=== PATIENT | female | born 1940 | race Caucasian/White ===

== ENCOUNTER → 2016-10-11 | Outpatient (CLI) | payer MEDICARE, BC | LOC: LAB.NP 14:07 | PROVIDERS: ATTEND Nurse Practitioner Family | DX: N39.0 Urinary tract infection, site not specified (principal) ==

== ENCOUNTER → 2016-10-16 | Outpatient (CLI) | payer MEDICARE, BC ==
--- NOTE | 2016-10-16 15:28 | MAM ---
EXAM DESCRIPTION: MAMMO BREAST SCREENING BILATERAL CAD, images were reviewed with CAD technology, R2 computer-aided detection. CLINICAL HISTORY: [facility]. COMPARISON: 2011. FINDINGS: Routine views are obtained. Nodular parenchymal contour with the increased mammographic density and stable distribution. No dominant mass, architectural distortion or clustered microcalcification.. IMPRESSION: Benign exam BIRAD CATEGORY: 2 BENIGN RECOMMENDATIONS: FOLLOW-UP: Routine screening mammogram in one year. According to the [employer], yearly mammograms are recommended starting at age 40 and continuing as long as a woman is in good health. Any breast change noted on a breast self-exam should be reported promptly to the patient's healthcare provider. Breast MRI is recommended for women with an approximately 20-25% or greater lifetime risk of breast cancer, including women with a strong family history of breast or ovarian cancer and women who have been treated for Hodgkin's disease. Electronically signed by: Josey Salas 10/16/2016 15:26
== END ==
LOC: MAMMO 12:29
PROVIDERS: ATTEND Family Medicine
DX: Z12.31 Encounter for screening mammogram for malignant neoplasm of breast (principal)
CPT/HCPCS: 77067; G0202

== ENCOUNTER → 2016-11-12 | Outpatient (CLI) | payer MEDICARE, BC | END | disposition home or self-care (01) | LOC: GMA 11:34 | PROVIDERS: ATTEND Nurse Practitioner Family | DX: R53.82 Chronic fatigue, unspecified (principal) ==

== ENCOUNTER 2017-03-13 09:42 | Emergency (ER) | payer MEDICARE, BC ==
[2017-03-13 10:17] VITALS: TEMP 97.2; O2SAT 98
[2017-03-13] MEDS ORDERED: COLCHICINE 0.6 MG TAB PO ONE (10:39)
--- NOTE | 2017-03-13 10:47 | RAD ---
EXAM DESCRIPTION: Wrist,Left 2 Views CLINICAL HISTORY: wrist and hand pain 3d no trauma COMPARISON: None. TECHNIQUE: 2 views left FINDINGS: Calcification of the triangle fibrocartilage is observed. Mild degenerative changes are observed in the metacarpal carpal articulation of the first digit. Mild osteopenia is noted. No fracturing is detected. IMPRESSION: Degenerative changes are observed. No fracturing is detected. Electronically signed by: Kannan Reyes MD 03/13/2017 10:39 AM CDT
--- NOTE | 2017-03-13 10:47 | RAD ---
EXAM DESCRIPTION: Hand,Left 2 Views CLINICAL HISTORY: wrist and hand pain 3d no trauma COMPARISON: None. TECHNIQUE: 2 views left FINDINGS: Calcification of the triangle fibrocartilage is observed. Mild osteopenia is noted. Mild degenerative changes are observed in the metacarpal carpal articulation of the first digit. Mild distal interphalangeal joint arthritis is noted. No fracturing is detected. IMPRESSION: Degenerative changes are observed. No fracturing is detected. Electronically signed by: Kannan Reyes MD 03/13/2017 10:38 AM CDT
--- NOTE | 2017-03-13 12:29 | ED.PDOC ---
History of Present Illness - General Chief Complaint: General Stated Complaint: left wrist pain Time Seen by Provider: 03/13/17 09:56 Source: patient - History of Present Illness Initial Comments: the patient is a 76-year-old female presenting to the emergency room with left wrist pain. She has had the pain at least a couple of months but it has been progressively getting worsewith significant increase in swelling over the last 3 days. She does not remember having any trauma and it recently. She does have known arthritis in the joint. She is neurovascularly intact. No history of gout. No fevers. No erythema of the skin. There is discomfort with palpation of the swelling. There is discomfort with movement of the wrist joint. No crepitus. Minimal pain in the hand. No other evidence of any injury. She had a uric acid level done not too long ago that was only 3.5. Timing/Duration: constant, getting worse Severity: moderate Improving Factors: immobilization Worsening Factors: movement Associated Symptoms: denies symptoms Allergies/Adverse Reactions: Allergies Codeine Allergy (Verified 03/13/17 10:18) Home Medications: Ambulatory Orders NK [NK] 03/13/17 Review of Systems - Review of Systems Constitutional: States: no symptoms reported EENTM: States: no symptoms reported Respiratory: States: no symptoms reported Cardiology: States: no symptoms reported Gastrointestinal/Abdominal: States: no symptoms reported Genitourinary: States: no symptoms reported Musculoskeletal: States: see HPI Skin: States: no symptoms reported Neurological: States: no symptoms reported Endocrine: States: no symptoms reported All other Systems: No Change from Baseline Past Medical History (General) - Patient Medical History Hx Seizures: No Hx Stroke: No Hx Dementia: No Hx Asthma: No Hx of COPD: No Hx Cardiac Disorders: No Hx Congestive Heart Failure: No Hx Pacemaker: No Hx Hypertension: No Hx Thyroid Disease: No Hx Diabetes: No Hx Gastroesophageal Reflux: Yes Hx Renal Disease: No Hx Cancer: No Hx of HIV: No Hx Hepatitis C: No Hx MRSA: No Surgical History: Hysterectomy, other - Vaccination History Hx Tetanus, Diphtheria Vaccination: Yes Hx Influenza Vaccination: Yes Hx Pneumococcal Vaccination: Yes - Social History Hx Tobacco Use: No Hx Chewing Tobacco Use: No Hx Alcohol Use: Yes - social Hx Substance Use: No Hx Substance Use Treatment: No Hx Depression: No Hx Physical Abuse: No Hx Emotional Abuse: No Hx Suspected Abuse: No - Activities of Daily Living Hospice Agency (if applicable):: None - Female History Patient is a Female of Child Bearing Age (10 -59 yrs old): No Patient : No Family Medical History - Family History Mother Family History: Unknown Physical Exam - Physical Exam General Appearance: Alert, Comfortable, No apparent distress Eye Exam: bilateral normal Ears, Nose, Throat: hearing grossly normal, normal pharynx Neck: full range of motion Respiratory: no respiratory distress, no accessory muscle use Cardiovascular/Chest: normal peripheral pulses, regular rate, rhythm, no edema Peripheral Pulses: radial,right: 2+, radial,left: 2+, dorsalis pedis,right: 2+, dorsalis pedis,left: 2+ Extremity: no pedal edema, no calf tenderness, normal capillary refill, swelling - left wrist See history of present illness. Neurologic: alert, normal mood/affect, oriented x 3 Skin Exam: normal color Comments: Vital Signs - 24 hr 03/13/17 09:50 Temperature 97.2 F L Respiratory 18 Rate Blood Pressure 139/63 [Right Arm] O2 Sat by Pulse 98 Oximetry Progress - Progress Progress: 03/13/17 12:29 the patient is a 76-year-old female presenting to the emergency room secondary to pain in the left wrist for an extended period of time that has progressed recently. the x-ray shows no evidence of anyfracture or dislocation. There is significant evidence of arthritis. The patient is to take one Aleve twice daily with food for the next week. She is placed in a wrist splint to help reduce movement. She was given a trial dose of colchicine without significant improvement. ER warnings were given for any worsening. She should follow-up with her primary care doctor within 1 week. 03/13/17 12:57 Departure - Departure Clinical Impression: Arthritis of wrist, degenerative Qualifiers: Osteoarthritis type: unspecified Laterality: left Qualified Code(s): M19.032 - Primary osteoarthritis, left wrist Disposition: Discharge to Home or Self Care Condition: Fair Departure Forms: ED Discharge - Pt. Copy, Patient Portal Self Enrollment Instructions: Osteoarthritis Diet: regular diet Activity: increase activity as tolerated Referrals: Tony Mcdowell MD [Primary Care Provider] - 1-2 Weeks Home Medications: Ambulatory Orders NK [NK] 03/13/17 Additional Instructions: the patient is a 76-year-old female presenting to the emergency room secondary to pain in the left wrist for an extended period of time that has progressed recently. the x-ray shows no evidence of anyfracture or dislocation. There is significant evidence of arthritis. The patient is to take one Aleve twice daily with food for the next week. She is placed in a wrist splint to help reduce movement. She was given a trial dose of colchicine without significant improvement. ER warnings were given for any worsening. She should follow-up with her primary care doctor within 1 week.
[2017-03-13 13:28] VITALS: BP 136/75
== END 2017-03-13 13:05 | disposition home or self-care (01) ==
LOC: ER 09:42
DX: M19.032 Primary osteoarthritis, left wrist (principal); Z88.5 Allergy status to narcotic agent; K21.9 Gastro-esophageal reflux disease without esophagitis

== ENCOUNTER → 2018-02-03 | Outpatient (CLI) | payer MEDICARE, BC ==
--- NOTE | 2018-02-05 13:37 | MAM ---
EXAM DESCRIPTION: 3D Screening BILATERAL : Digital Mammography. CLINICAL HISTORY: 77 years Female SCREENING . No complaints. Sister and remote family history of breast cancer. Childbirth. Hysterectomy. HRT 5 or more years ago. Prior biopsy left breast. COMPARISON: 2-D digital screening bilateral study 10/06/2016.. Report from prior examination also reviewed. TECHNIQUE: Bilateral CC and MLO projection full-field images, 3-D tomosynthesis digital mammographic technique. CAD not utilized. FINDINGS: The breast parenchymal density pattern is: Heterogeneously dense breast tissue, which may obscure small masses. No skin thickening or nipple retraction bilateral vascular calcifications. Bilateral solitary calcifications. Left axillary lymph nodes. No focal, stellate mass or density, focal asymmetry , and no suspicious microcalcifications bilaterally. Stable mammograms compared to prior study, taking into account differences in mammographic technique IMPRESSION: BI-RADS CATEGORY: 2 - BENIGN FINDINGS. FOLLOW UP: Routine digital bilateral screening, one year interval from January 2018. Written communication explaining the IMPRESSION and follow-up, will be mailed to the patient and referring health care provider. According to the [employer], yearly mammograms are recommended starting at age 40 and continuing as long as a woman is in good health. Any breast change noted on a breast self-exam should be reported promptly to the patient's healthcare provider. Breast MRI is recommended for women with an approximately 20-25% or greater lifetime risk of breast cancer, including women with a strong family history of breast or ovarian cancer and women who have been treated for Hodgkin's disease. A negative mammographic report should not delay tissue diagnosis in patients with significant clinical history or physical findings. Extremely dense breast tissue limits the sensitivity of digital mammography. Electronically signed by: Sacha Evans MD 02/05/2018 1:36 PM CDT
== END ==
LOC: MAMMO 13:13
PROVIDERS: ATTEND Family Medicine
DX: Z12.31 Encounter for screening mammogram for malignant neoplasm of breast (principal)

== ENCOUNTER → 2018-07-17 | Outpatient (CLI) | payer MEDICARE, BC ==
--- NOTE | 2018-07-17 10:37 | RAD ---
EXAM DESCRIPTION: Pelvis CLINICAL HISTORY: 78 years Female, HIP PAIN COMPARISON: January 21, 2013 FINDINGS: Single AP view of the pelvis shows no pelvic fracture or malalignment. Moderate degenerative changes in the right hip are worse from the prior exam including joint space narrowing and osteophyte formation. The left hip joint is relatively well maintained. Mild degenerative changes are noted in the pubic symphysis and also in the lower lumbar spine at several levels. Postoperative changes in the pelvis are unchanged from the previous. IMPRESSION: Moderate degenerative changes in the right hip, worse from November,. Electronically signed by: Seth Rae MD 07/17/2018 10:35 AM CDT
--- NOTE | 2018-07-17 10:38 | RAD ---
EXAM DESCRIPTION: Hip,Left 2 Views CLINICAL HISTORY: 78 years Female, HIP PAIN COMPARISON: None. FINDINGS: Two views of the left hip show no acute fracture or malalignment. No significant left hip joint space narrowing. No focal bone lesion. Postoperative changes are noted in the pelvis, but the soft tissues are otherwise unremarkable. IMPRESSION: Negative exam. No apparent abnormality to explain left hip pain. Electronically signed by: Seth Rae MD 07/17/2018 10:36 AM CDT
== END ==
LOC: RAD 08:13
PROVIDERS: ATTEND Orthopaedic Surgery
DX: M25.552 Pain in left hip (principal)

== ENCOUNTER → 2019-02-05 | Outpatient (CLI) | payer MEDICARE ==
--- NOTE | 2019-02-06 15:07 | MAM ---
EXAM DESCRIPTION: 3D Screening BILATERAL : Digital Mammography. CLINICAL HISTORY: 78 years Female ANNUAL SCREENING no complaints. No personal or family history of breast cancer. Childbirth. Postmenopausal. Taking HRT 5 or more years ago. Prior right breast benign biopsy. Lifetime risk of developing breast cancer (Tyrer-Cuzick model)(%): 3.2. COMPARISON: Bilateral screening digital breast tomosynthesis 02/03/2018.. TECHNIQUE: Bilateral CC and MLO projection full-field images, digital tomosynthesis mammographic technique. Bilateral digital 2-D full-field MLO images. CAD not available for tomosynthesis or 2-D images. FINDINGS: The breast parenchymal density pattern is: Heterogeneously dense breast tissue, which may obscure small masses. No skin thickening or nipple retraction. No new focal, stellate mass or density, focal asymmetry , and no suspicious microcalcifications bilaterally. Stable mammograms compared to prior study. IMPRESSION: Negative findings. ASSESSMENT: BI-RADS CATEGORY: 1 - NEGATIVE FOLLOW UP: Routine digital bilateral screening, one year interval from January 2019. Written communication explaining the findings and follow-up, will be mailed to the patient and referring health care provider. According to the [employer], yearly mammograms are recommended starting at age 40 and continuing as long as a woman is in good health. Any breast change noted on a breast self-exam should be reported promptly to the patient's healthcare provider. Breast MRI is recommended for women with an approximately 20-25% or greater lifetime risk of breast cancer, including women with a strong family history of breast or ovarian cancer and women who have been treated for Hodgkin's disease. A negative mammographic report should not delay tissue diagnosis in patients with significant clinical history or physical findings. Extremely dense breast tissue limits the sensitivity of digital mammography. Electronically signed by: Sacha Evans MD 02/06/2019 3:05 PM CDT
== END ==
LOC: MAMMO 08:18
PROVIDERS: ATTEND Family Medicine
DX: Z12.31 Encounter for screening mammogram for malignant neoplasm of breast (principal); M25.50 Pain in unspecified joint; Z79.899 Other long term (current) drug therapy

== ENCOUNTER → 2019-04-30 | Outpatient (CLI) | payer MEDICARE ==
--- NOTE | 2019-04-30 09:07 | RAD ---
PROVIDED CLINICAL HISTORY/REASON FOR EXAM: M25.552 Findings: Number of images: 3 Location: Right hip/pelvis No acute fracture or dislocation. Moderate right hip joint space narrowing with subchondral sclerosis and cyst formation. Right hip osteophytosis. Soft tissues are unremarkable. Surgical material noted overlying the central pelvis. Mild left hip osteoarthritis. Bilateral sacroiliac joint space narrowing. Partially visualized lower lumbar spondylosis. IMPRESSION: Chronic degenerative changes about the right hip and pelvis. No evidence of acute process. Electronically signed by: Johnson Yoder MD 04/30/2019 9:05 AM CDT
== END ==
LOC: RAD 07:56
PROVIDERS: ATTEND Orthopaedic Surgery
DX: M16.11 Unilateral primary osteoarthritis, right hip (principal)

== ENCOUNTER → 2020-02-26 | Outpatient (CLI) | payer MEDICARE ==
--- NOTE | 2020-02-26 09:23 | RAD ---
EXAM DESCRIPTION: Ankle,Right 3 Views CLINICAL HISTORY: 79 years Female, PAIN IN RIGHT ANKLE AND JOINTS OF RIGHT FOOT COMPARISON: None. FINDINGS: Three views of the right ankle were obtained. No soft tissue swelling, acute fracture or dislocation is identified. Narrowing of the tibiotalar joint space, worse medially. The talar dome is intact. Degenerative calcification arising from the tips of the medial and lateral malleolar line. Less likely, this could be related to remote trauma. The subtalar joint and calcaneus are unremarkable. IMPRESSION: Moderately advanced degenerative changes in the tibiotalar joint. Electronically signed by: Seth Rae MD 02/26/2020 9:22 AM CDT
== END ==
LOC: RAD 08:18
PROVIDERS: ATTEND Orthopaedic Surgery
DX: M19.071 Primary osteoarthritis, right ankle and foot (principal)

== ENCOUNTER → 2020-06-14 | Outpatient (CLI) | payer MEDICARE ==
--- NOTE | 2020-06-15 16:12 | MAM ---
EXAM DESCRIPTION: 3D Screening BILATERAL : Digital Mammography. CLINICAL HISTORY: 80 years Female ANNUAL SCREENING . No complaints. Sister with breast cancer at age 40. Menarche age 16. Childbirth age 20. Menopause age 34. Lifetime risk of developing breast cancer (Tyrer-Cuzick model)(%): 4.4. COMPARISON: Bilateral screening digital breast tomosynthesis 2018 and January 2018. TECHNIQUE: Bilateral CC and MLO projection full-field images, digital tomosynthesis mammographic technique. Bilateral digital 2-D full-field MLO images. CAD available for 2-D images. FINDINGS: The breast parenchymal density pattern is: Heterogeneously dense breast tissue, which may obscure small masses. No skin thickening or nipple retraction. Solitary microcalcifications. Axillary lymph nodes.*Or calcifications. No new focal, stellate mass or density, focal asymmetry , and no suspicious microcalcifications bilaterally. Stable mammograms compared to prior study. IMPRESSION: Benign exam. BIRAD CATEGORY: 2 BENIGN FINDINGS. RECOMMENDATIONS: FOLLOW UP: Routine digital bilateral mammographic screening, one year interval from May 2020. Written communication explaining the IMPRESSION and follow-up, will be mailed to the patient and referring health care provider. According to the [employer], yearly mammograms are recommended starting at age 40 and continuing as long as a woman is in good health. Any breast change noted on a breast self-exam should be reported promptly to the patient's healthcare provider. Breast MRI is recommended for women with an approximately 20-25% or greater lifetime risk of breast cancer, including women with a strong family history of breast or ovarian cancer and women who have been treated for Hodgkin's disease. A negative mammographic report should not delay tissue diagnosis in patients with significant clinical history or physical findings. Extremely dense breast tissue limits the sensitivity of digital mammography. Electronically signed by: Sacha Evans MD 06/15/2020 4:11 PM CDT
== END ==
LOC: MAMMO 08:48
PROVIDERS: ATTEND Family Medicine
DX: Z12.31 Encounter for screening mammogram for malignant neoplasm of breast (principal)

== ENCOUNTER 2020-08-07 06:10 | Emergency (ER) | payer MEDICARE ==
--- NOTE | 2020-08-07 06:26 | ED.PDOC ---
History of Present Illness - General Chief Complaint: Upper Extremity Injury Stated Complaint: Left wrist pain Time Seen by Provider: 08/07/20 06:22 Source: patient, RN notes reviewed, Vital Signs reviewed, family - History of Present Illness Initial Comments: This is a 80-year-old female presenting to the emergency department after a mechanical fall that occurred approximately 45 minutes prior to arrival. Patient states she walked into a dark bathroom and missed the toilet while sitting down. She states she fell into her bathtub onto an outstretched left wrist. She denies any preceding symptoms, no chest pain no shortness of breath, no dizziness. She denies any head trauma. She denies any neck or back pain. She is able to ambulate after the fall. She is left-hand dominant Allergies/Adverse Reactions: Allergies Codeine Allergy (Verified 03/13/17 10:18) Home Medications: Ambulatory Orders Tramadol HCl 50 - 100 mg PO Q6H PRN #20 tab 08/07/20 Review of Systems - Review of Systems Respiratory: Denies: short of breath Cardiology: Denies: chest pain, palpitations Musculoskeletal: States: joint pain. Denies: back pain, neck pain Neurological: Denies: headache, numbness, tingling Past Medical History (General) - Patient Medical History Hx Seizures: No Hx Stroke: No Hx Dementia: No Hx Asthma: No Hx of COPD: No Hx Cardiac Disorders: No Hx Congestive Heart Failure: No Hx Pacemaker: No Hx Hypertension: No Hx Thyroid Disease: No Hx Diabetes: No Hx Gastroesophageal Reflux: Yes Hx Renal Disease: No Hx Cancer: No Hx of HIV: No Hx Hepatitis C: No Hx MRSA: No - Vaccination History Hx Tetanus, Diphtheria Vaccination: Yes Hx Influenza Vaccination: Yes Hx Pneumococcal Vaccination: Yes - Social History Hx Tobacco Use: No Hx Chewing Tobacco Use: No Hx Alcohol Use: Yes - social Hx Substance Use: No Hx Substance Use Treatment: No Hx Depression: No Hx Physical Abuse: No Hx Emotional Abuse: No Hx Suspected Abuse: No - Female History Patient : No Family Medical History - Family History Mother Family History: Unknown Living Status: Hx Family Stroke: Yes Physical Exam - Physical Exam General Appearance: Alert, Comfortable Eyes, Ears, Nose, Throat Exam: normal ENT inspection Neck: non-tender, supple Cardiovascular/Respiratory: regular rate, rhythm, no M/R/G, normal peripheral pulses, no JVD Abdominal Exam: non-tender Back Exam: normal inspection, no CVA tenderness, no vertebral tenderness Shoulder Exam: normal inspection, non-tender, no evidence of injury Elbow/Forearm Exam: normal inspection, non-tender, no evidence of injury Wrist Exam: bone tenderness - Distal radius, proximal wrist, limited ROM, swelling Hand Exam: normal inspection, non-tender - No snuffbox tenderness Neuro/Tendon: normal sensation, normal motor functions, normal tendon functions Mental Status: alert, oriented x 3 Skin Exam: normal color, warm/dry Progress - Progress Progress: 08/07/20 06:44 Rechecked. Discussed x-ray findings, need for follow-up with orthopedics. Strict warnings given to return to emergency room for worsening pain, numbness, tingling, color changes, or any other concerns. Patient has seen Dr. Ramesh before in the past, she will call later on today for an appointment. DDX: Fx, sprain, dislocation MDM: Ground-level fall onto outstretched left wrist, patient with Colles' fracture, closed, neurovascularly intact. Splint placed, recommend follow-up with Ortho. Patient is only able to take tramadol for pain. Will give prescription for home. Splint precautions discussed. Jose Larson DO [facility] #[id number] - Results/Orders Results/Orders: Left wrist x-ray reviewed personally by me at 6:42 AM. There is a comminuted distal radius fracture, minimally angulated, as well as a ulnar styloid fracture. Departure - Departure Clinical Impression: Fall at home Qualifiers: Encounter type: initial encounter Qualified Code(s): W19.XXXA - Unspecified fall, initial encounter Colles' fracture Qualifiers: Encounter type: initial encounter Fracture type: closed Laterality: left Qualified Code(s): S52.532A - Colles' fracture of left radius, initial encounter for closed fracture Disposition: Discharge to Home or Self Care Condition: Good Departure Forms: ED Discharge - Pt. Copy, Patient Portal Self Enrollment Instructions: DI for Arm Pain, Colles' Fracture (DC), Splint Care Diet: resume usual diet Activity: increase activity as tolerated, no pushing/pulling with affected limb Referrals: Tony Mcdowell MD [Primary Care Provider] - 1-5 Days Zhao Ramesh MD [Active Staff] - 1-2 Days Prescriptions: Tramadol HCl 50 - 100 mg PO Q6H PRN #20 tab PRN Reason: Moderate To Severe Pain Home Medications: Ambulatory Orders Tramadol HCl 50 - 100 mg PO Q6H PRN #20 tab 08/07/20
--- NOTE | 2020-08-07 06:48 | RAD ---
EXAM: XR Left Wrist Complete, 3 or More Views CLINICAL HISTORY: The patient is 80 years old and is Female; fall, wrist pain TECHNIQUE: Three views of the left wrist. COMPARISON: No relevant prior studies available. FINDINGS: Bones/joints: Comminuted displaced distal radius fracture. Acute ulnar styloid fracture. No dislocation. Degenerative changes in the basal joint. Soft tissues: Soft tissue swelling. No radiopaque foreign body. IMPRESSION: 1. Comminuted displaced distal radius fracture. 2. Acute ulnar styloid fracture. Electronically signed by: Ayanna Linares MD 08/07/2020 6:47 AM [facility]
[2020-08-07 07:03] VITALS: BP 122/55; TEMP 97.7; O2SAT 99
== END 2020-08-07 07:03 | disposition home or self-care (01) ==
LOC: ER 06:10
DX: S52.532A Colles' fracture of left radius, initial encounter for closed fracture (principal); S52.612A Displaced fracture of left ulna styloid process, initial encounter for closed fracture; K21.9 Gastro-esophageal reflux disease without esophagitis; Z88.5 Allergy status to narcotic agent; W18.39XA Other fall on same level, initial encounter; Y92.002 Bathroom of unspecified non-institutional (private) residence as the place of occurrence of the external cause

== ENCOUNTER → 2020-08-19 | Outpatient (CLI) | payer MEDICARE ==
--- NOTE | 2020-08-20 11:21 | RAD ---
EXAM DESCRIPTION: Wrist,Left 3 Views: CR/DR/XR CLINICAL HISTORY: 80 years Female nondisplaced fracture of left radial styloid process COMPARISON: Left wrist radiographs August 07. TECHNIQUE: 3 VIEWS AP. Lateral. Oblique. Left wrist. FINDINGS: Transverse fracture distal left radius. Fracture line is less distinct. Displaced bone again noted on the ulnar aspect with irregularity of the cortex on the radial aspect. No change in radiodense objects on the volar aspect of the proximal radius on the lateral view. Minimally displaced fracture of the ulnar styloid stable. IMPRESSION: Healing fracture of the distal left radius. Stable alignment at the fracture site. Electronically signed by: Sacha Evans MD 08/20/2020 11:19 AM [facility]
== END ==
LOC: RAD 08:23
PROVIDERS: ATTEND Orthopaedic Surgery
DX: S52.592D Other fractures of lower end of left radius, subsequent encounter for closed fracture with routine healing (principal)

== ENCOUNTER → 2020-09-23 | Outpatient (CLI) | payer MEDICARE ==
--- NOTE | 2020-09-23 17:52 | RAD ---
EXAM DESCRIPTION: Wrist,Left 3 Views CLINICAL HISTORY: fracture of distal end of radius COMPARISON: 19 August 2020 TECHNIQUE: 3 views left FINDINGS: A prior fracture of the region of the radial metaphysis is observed. Some callus formation is observed at the fracture site. Angulation is unchanged from the previous exam. Degenerative changes are observed in the metacarpal carpal articulation of the first digit. Radial side intracarpal arthritis is observed. IMPRESSION: Healing fracture of the distal radius. No change in alignment is observed from the prior exam. Electronically signed by: Kannan Reyes MD 09/23/2020 5:51 PM [facility]
== END ==
LOC: RAD 08:43
PROVIDERS: ATTEND Orthopaedic Surgery
DX: S52.501D Unspecified fracture of the lower end of right radius, subsequent encounter for closed fracture with routine healing (principal)

== ENCOUNTER → 2020-10-14 | Outpatient (CLI) | payer MEDICARE ==
--- NOTE | 2020-10-15 13:52 | RAD ---
EXAM DESCRIPTION: Wrist,Left 3 Views CLINICAL HISTORY: 80 years, Female, CLOSED FX OF DISTAL RADIUS COMPARISON: None FINDINGS: Left wrist 3 x-ray views reveals healing transverse fracture of the distal radial metaphysis. Alignment is unchanged compared to previous study in March. Sclerosis along the fracture site is stable consistent with partial healing. Dorsal tilt of the lunate is unchanged compared to previous.. Degenerative changes at the first carpometacarpal joint. Degenerative changes at the scapholunate trapezial joint. Moderate dorsal tilt of the talus with impacted appearance of the fracture as on previous study. IMPRESSION: Partially healed fracture of the distal left radius. Electronically signed by: Jose Josue MD 10/15/2020 1:51 PM [facility]
== END ==
LOC: RAD 09:00
PROVIDERS: ATTEND Orthopaedic Surgery
DX: S52.592D Other fractures of lower end of left radius, subsequent encounter for closed fracture with routine healing (principal)